=== PATIENT | female | born 1995 | race Caucasian/White ===

== ENCOUNTER 2022-09-30 18:16 | Emergency (ER) | payer OTHER ==
[2022-09-30 18:30] VITALS: BP 116/78; PULSE 111; RESP 18; TEMP 98; BMI 29.2
[2022-09-30] MEDS ORDERED: CYCLOBENZAPRINE HCL 10 MG TABLET (FP) PO ONE (19:06)
[2022-09-30] MEDS ORDERED: ACETAMINOPHEN 500 MG TABLET (FP) PO ONE (19:06)
[2022-09-30] MEDS ORDERED: KETOROLAC TROMETHAMINE 30 MG/1 ML VIAL IM ONE (19:06)
[2022-09-30] MEDS ORDERED: CYCLOBENZAPRINE HCL 10 MG TABLET (FP) ONE (19:29)
[2022-09-30] MEDS ORDERED: KETOROLAC TROMETHAMINE 30 MG/1 ML VIAL ONE (19:29)
[2022-09-30] MEDS ORDERED: ACETAMINOPHEN 500 MG TABLET (FP) ONE (19:29)
== END 2022-09-30 21:01 | disposition home or self-care (01) ==
LOC: JER 18:16 → JERFT 18:16
PROC: 3E0233Z Introduction of Anti-inflammatory into Muscle, Percutaneous Approach (ICD-10-PCS; principal; 2022-09-30)
DX: M54.31 Sciatica, right side (principal)
CPT/HCPCS: 99283-25